=== PATIENT | female | born 1995 | race Caucasian/White ===

== ENCOUNTER 2017-05-19 20:39 | Emergency (ER) | payer BC ==
[~2017-05-19] VITALS: Ht 152.4 cm; Wt 61.4 kg
[2017-05-19 20:43] VITALS: TEMP 36.9; Ht 152.4 cm; Wt 61.4 kg
--- NOTE | 2017-05-19 21:01 | EMERGENCY ROOM VISIT NOTE ---
History First contact with patient: 20:47 Chief Complaint: ILLNESS Stated Complaint: NOT FEELING, NAUSEA, CHILLS History of Present Illness The patient is a 21 year old female who presents to the Emergency Room with complaints of a possible retained tampon. The patient states that she had a tampon in last night and was out at bars drinking. She is unsure if she removed the tampon or not. She states that she has been slightly nauseous and lightheaded today which she attributes to drinking alcohol last night. She does report her periods have been slightly abnormal since taking Plan B a few months ago and has been lasting for shorter periods. She has taken home tests which were negative. She denies any pain. Review of Systems A complete 10 point review of systems was reviewed with the patient with pertinent positives and negatives as per history of present illness. All else were negative. Social History Smoking Status: Never Smoker Current/Historical Medications Scheduled Control Pills ( Control Pills), 1 TAB PO DAILY Montelukast Sodium (Singulair), 10 MG PO DAILY Physical Exam Vital Signs Date Time Temp Pulse Resp B/P (MAP) Pulse Ox O2 Delivery O2 Flow Rate FiO2 05/19/17 21:05 90 16 137/76 98 Room Air 05/19/17 20:43 36.9 101 18 134/91 97 Room Air Physical Exam VITALS: Vitals are noted on the nurse's note and reviewed by myself. Vital signs stable. GENERAL: This is a 21-year-old female, in no acute distress, nondiaphoretic, well-developed well-nourished. HEART: Regular rate and rhythm without murmurs gallops or rubs. LUNGS: Clear to auscultation bilaterally without wheezes, rales or rhonchi. No retractions or accessory muscle use. ABDOMEN: Soft, nontender to palpation. PELVIC: External genitalia unremarkable. There is a small amount of dark red blood within the vaginal vault. Cervix is normal. No foreign body seen. NEURO: Patient was alert and oriented to person place and time. Medical Decision & Procedures Medical Decision The patient was evaluated as above. Pelvic exam was performed and the patient does not have a retained tampon. Pelvic exam is within normal limits. Patient was offered test here but declined, stating that she has taken one at home recently and it was negative. Patient was encouraged to follow-up with OB/ [facility] [employer] for any further concerns. She verbalized understanding of my assessment and treatment plan and was discharged home in good condition. Medication Reconcilliation Current Medication List: was personally reviewed by me Blood Pressure Screening Patient's blood pressure: Normal blood pressure Impression Primary Impression: Suspected vaginal foreign body Departure Information Dispostion Home / Self-Care Condition GOOD Referrals No Doctor, Assigned (PCP) Patient Instructions My [employer] Additional Instructions Rest and drink plenty of fluids. Follow-up with [facility] or [facility] as needed.
[2017-05-19 21:05] VITALS: BP 137/76; PULSE 90; O2SAT 98
[2017-05-19] MEDS ORDERED: MONT1TAB3 PO (21:34)
[2017-05-19] MEDS ORDERED: BCPILLS PO (21:35)
== END 2017-05-19 21:15 | disposition home or self-care (01) ==
LOC: C.EDB 20:41 → C.EDC 21:15
DX: R11.0 Nausea (principal); R68.83 Chills (without fever)